=== PATIENT | male | born 1985 | race African-American/Black ===

== ENCOUNTER 2020-07-26 00:51 | Emergency (ER) | payer MEDICAID, OTHER ==
[~2020-07-26] VITALS: Ht 193 cm; Wt 95.3 kg
[2020-07-26 01:01] VITALS: BP 130/92
--- NOTE | 2020-07-26 09:46 | NUR ---
pt not in ed waiting room since the start of the shift.
== END 2020-07-26 09:49 | disposition left against medical advice (07) ==
LOC: ER 00:53
DX: K29.00 Acute gastritis without bleeding (principal); J45.909 Unspecified asthma, uncomplicated; F17.200 Nicotine dependence, unspecified, uncomplicated; Z59.0 Homelessness; Z88.6 Allergy status to analgesic agent